=== PATIENT | female | born 1960 | race Caucasian/White ===

== ENCOUNTER 2020-07-06 07:50 | Outpatient (REF) | payer OTHER, SELFPAY | END 2020-07-06 07:51 | disposition home or self-care (01) | LOC: HO.WFDLDS 07:50 | PROVIDERS: PCP Pediatrics; Visit Provider Internal Medicine | DX: Z20.822 Contact with and (suspected) exposure to COVID-19 (principal) | CPT/HCPCS: C9803; U0003; U0005 ==

== ENCOUNTER → 2022-12-11 12:58 | Outpatient (BNVA) | payer SELFPAY | PROVIDERS: PCP Pediatrics ==